=== PATIENT | female | born 1980 | race Two or more races ===

== ENCOUNTER 2020-03-06 05:41 | Emergency (ER) | payer MEDICAID, OTHER ==
[~2020-03-06] VITALS: Ht 170.2 cm; Wt 82.0 kg
[2020-03-06] MEDS ORDERED: SODIUM CHLORIDE 0.9% 1,000 ML IV ONE (06:30)
[2020-03-06 08:12] LABS: HEMATOCRIT. 39.9 % (36.0-48.0); HEMOGLOBIN. 13.3 g/dL (12.0-16.0); MEAN CORPUSCULAR HEMOGLOBIN 31.5 pg (28.0-32.0); MEAN CORPUSCULAR VOLUME 94.6 fL (81.0-99.0); PLATELET 226 x1000/uL (130-400); RED BLOOD CELL COUNT 4.21 mill/uL (4.2-5.4); RED CELL DISTRIBUTION WIDTH 15.6 % (11.6-14.6)
[2020-03-06 08:15] LABS: CHLORIDE 106 mEq/L (98-107)
[2020-03-06 08:19] LABS: INR 1.1; PROTHROMBIN TIME 11.4 sec (9.6-11.0)
[2020-03-06 08:28] LABS: KETONES URINE 1+ (NEGATIVE); LEUKOCYTE ESTERASE URINE 1+ (NEGATIVE); NITRITE URINE NEGATIVE (NEGATIVE); OCCULT BLOOD URINE 3+ (NEGATIVE); PH URINE 6.5 (4.5-8.0); PROTEIN URINE 4+ (NEGATIVE); SPECIFIC GRAVITY URINE 1.017 (1.005-1.030); UROBILINOGEN URINE 0.2 E.U./dL (0.2-1.0)
[2020-03-06 08:29] LABS: CLARITY URINE TURBID (CLEAR); COLOR URINE BLOODY (YELLOW)
[2020-03-06 08:49] LABS: HCG SCREEN NEGATIVE
[2020-03-06 09:16] LABS: PLATELET ESTIMATE NORMAL
[2020-03-06 10:30] VITALS: BP 124/58
== END 2020-03-06 10:43 | disposition home or self-care (01) ==
LOC: ER 05:41
DX: R55 Syncope and collapse (principal); I77.6 Arteritis, unspecified
CPT/HCPCS: 36415; 71045; 80053; 81003; 84703; 85025; 85610; 93005; 96360; 99285; J7030